=== PATIENT | male | born 1950 | race Caucasian/White ===

== ENCOUNTER 2019-04-26 12:17 | Day surgery (SDC) | payer MEDICARE, OTHER ==
[~2019-04-26 12:17] MED LIST: Acetaminophen TAB* 325 MG PO PRN; Buffered Lidocaine 1% SYRIN* 1 ML/SYRINGE INTRADERM ONE; Cyclopentolate 1% OPTH.SOL* 2 ML BTL ONE; Ketorolac 0.5% OPHTH (NF) 0.5 % 5 ML BTL ONE; Lidocaine 1%* 5 ML VIAL ONE; Lidocaine 2% EPI 1:200000 MPF*10-20 ML VIAL ONE; Neomycin/Polymy/Dex OPTH.SUSP* MAXITROL 0.1% 5 ML ONE; Phenylephrine OPHTH SOL 2.5%* 2 ML ONE; Povidone Iodine 5% OPTH* 30 ML BTL ONE; Proparacaine 0.5% OPHTH.SOL* 15 ML BTL ONE; acetaZOLAMIDE TAB* 250 MG ONE
[2019-04-26] MEDS ORDERED: Midazolam* 1 MG/ML 5 ML VIAL (5 MG) ONE (14:25)
--- NOTE | 2019-04-26 15:40 | OP ---
OPERATIVE NOTE: DATE OF OPERATION: 04/26/19 DATE OF : 48 SURGEON: Familia Ramirez M.D. PREOPERATIVE DIAGNOSIS: Cataract, right eye. POSTOPERATIVE DIAGNOSIS: Cataract, right eye. OPERATIVE PROCEDURE: Extracapsular cataract extraction with intraocular lens implant, right eye. PROCEDURE: The patient was brought to the operating room after being given 1/2% Alcaine with epineph rine drops in the preoperative area. The eye was prepped and draped in the usual sterile fashion. S terile drape and eyelid speculum were placed. Again, topical 1/2% Alcaine with epinephrine was given . A paracentesis incision was made at the 9 o'clock position with the No.75 blade. Clear cornea inc ision 2.2 x 2.2-mm was created at the 12 o'clock position starting at the anterior limbus using the 2 .2-mm keratome. The anterior chamber was irrigated with 0.4 mL of 1% non-preservative intracameral l idocaine and filled with DisCoVisc. A capsulorrhexis was completed using the cystotome and the Utrat a forceps. Hydrodissection was performed with balanced salt solution. The lens nucleus was removed w ith the Phacoemulsification handpiece without incident. Cortex was removed with the irrigation-aspir ation handpiece. The capsular bag was re-inflated using DisCoVisc and an SN60WF 19 implant was inser antonietta with the shooter. The pupil was very small, so a Malyugin ring was used to dilate the pupil prio r to capsulorrhexis. This was removed after the insertion of the lens. Indication for complex catar act surgery: Pupil abnormalities requiring pupil dilation device. The irrigation-aspiration handpiec e was used to remove all residual DisCoVisc. The eye was refilled with balanced salt solution and th e wound checked and found to be watertight. Topical Maxitrol drops were given. [id number]/[facility] #: [id number]
[2019-04-26 16:06] VITALS: BP 126/61
== END 2019-04-26 15:20 | disposition home or self-care (01) ==
LOC: OREAST 12:17
PROVIDERS: ATTEND Specialist
DX: H25.11 Age-related nuclear cataract, right eye (principal); I10 Essential (primary) hypertension; K21.9 Gastro-esophageal reflux disease without esophagitis; I48.91 Unspecified atrial fibrillation; Z87.891 Personal history of nicotine dependence; G47.33 Obstructive sleep apnea (adult) (pediatric)
CPT/HCPCS: A9270-GY; J2250; V2632

== ENCOUNTER 2019-05-03 07:10 | Day surgery (SDC) | payer MEDICARE, OTHER ==
[~2019-05-03 07:10] MED LIST changes: -Cyclopentolate 1% OPTH.SOL* 2 ML BTL ONE; -Ketorolac 0.5% OPHTH (NF) 0.5 % 5 ML BTL ONE; -Lidocaine 1%* 5 ML VIAL ONE; -Lidocaine 2% EPI 1:200000 MPF*10-20 ML VIAL ONE; -Neomycin/Polymy/Dex OPTH.SUSP* MAXITROL 0.1% 5 ML ONE; -Phenylephrine OPHTH SOL 2.5%* 2 ML ONE; -Povidone Iodine 5% OPTH* 30 ML BTL ONE; -Proparacaine 0.5% OPHTH.SOL* 15 ML BTL ONE; -acetaZOLAMIDE TAB* 250 MG ONE
[2019-05-03] MEDS ORDERED: Cyclopentolate 1% OPTH.SOL* 2 ML BTL ONE (07:45)
[2019-05-03] MEDS ORDERED: Lidocaine 2% EPI 1:200000 MPF*10-20 ML VIAL ONE (07:45)
[2019-05-03] MEDS ORDERED: Ketorolac 0.5% OPHTH (NF) 0.5 % 5 ML BTL ONE (07:45)
[2019-05-03] MEDS ORDERED: Neomycin/Polymy/Dex OPTH.SUSP* MAXITROL 0.1% 5 ML ONE (07:45)
[2019-05-03] MEDS ORDERED: Lidocaine 1%** 5 ML VIAL ONE (07:45)
[2019-05-03] MEDS ORDERED: Povidone Iodine 5% OPTH* 30 ML BTL ONE (07:45)
[2019-05-03] MEDS ORDERED: Phenylephrine OPHTH SOL 2.5%* 2 ML ONE (07:45)
[2019-05-03] MEDS ORDERED: acetaZOLAMIDE TAB* 250 MG ONE (07:45)
[2019-05-03] MEDS ORDERED: Proparacaine 0.5% OPHTH.SOL* 15 ML BTL ONE (07:46)
[2019-05-03] MEDS ORDERED: Midazolam* 1 MG/ML 2 ML VIAL (2 MG) ONE ×2 (08:49→09:14)
--- NOTE | 2019-05-03 09:54 | OP ---
OPERATIVE NOTE: DATE OF OPERATION: 05/03/19 - [facility] DATE OF : 48 SURGEON: Familia Ramirez M.D. PREOPERATIVE DIAGNOSIS: Cataract, left eye. POSTOPERATIVE DIAGNOSIS: Cataract, left eye. OPERATIVE PROCEDURE: Extracapsular cataract extraction with intraocular lens implant, left eye. PROCEDURE: The patient was brought to the operating room after being given 1/2 % Alcaine with epinephrine drops in the preoperative area. The eye was prepped and draped in the usual sterile fashion. Sterile drape and eyelid speculum were placed. Again, topical 1/2% Alcaine with epinephrine was given. A paracentesis incision was made at the 3 o'clock position with the No.75 blade. Clear cornea incision 2.2 x 2.2-mm was created at the 6 o'clock position starting at the anterior limbus using the 2.2-mm keratome. The anterior chamber was irrigated with 0.4 mL of 1% non-preservative intracameral lidocaine and filled with DisCoVisc. A capsulorrhexis was completed using the cystotome and the Utrata forceps. Hydrodissection was performed with balanced salt solution. The lens nucleus was removed with the Phacoemulsification handpiece without incident. Cortex was removed with the irrigation-aspiration handpiece. The capsular bag was re-inflated using DisCoVisc and an SN60WF 18.5 implant was inserted with the shooter. Pupils is only 3 mm. A Malyugin ring was used to dilate the pupil, removed after insertion of the lens. The irrigation- aspiration handpiece was used to remove all residual DisCoVisc. The eye was refilled with balanced salt solution and the wound checked and found to be watertight. Topical Maxitrol drops were given. Indication for complex cataract surgery: Pupil abnormalities requiring pupil dilation device. [id number]/[facility] #: [id number] MTDD
[2019-05-03 09:56] VITALS: BP 104/62
== END 2019-05-03 09:48 | disposition home or self-care (01) ==
LOC: OREAST 07:10
PROVIDERS: ATTEND Specialist
DX: H25.12 Age-related nuclear cataract, left eye (principal); K21.9 Gastro-esophageal reflux disease without esophagitis; N40.0 Benign prostatic hyperplasia without lower urinary tract symptoms; I10 Essential (primary) hypertension; I48.91 Unspecified atrial fibrillation; Z87.891 Personal history of nicotine dependence; Z96.1 Presence of intraocular lens
CPT/HCPCS: A9270-GY; J2250; V2632